=== PATIENT | male | born 1960 | race Two or more races ===

== ENCOUNTER → 2021-06-09 | Day surgery (SDC) | payer OTHER ==
[~2021-06-09] MED LIST: AVAPRO75 MG PO; BAYER CHILDREN'81 MG PO; CRESTOR20 MG PO; DUI500 PO; ULTRACET PO
== END | disposition home or self-care (01) ==
LOC: ADM 06-04 09:15 → CIR.AMB 05:40
PROVIDERS: ATTEND Orthopaedic Surgery Sports Medicine
DX: S83.231A Complex tear of medial meniscus, current injury, right knee, initial encounter (principal); M23.321 Other meniscus derangements, posterior horn of medial meniscus, right knee; M65.861 Other synovitis and tenosynovitis, right lower leg; Z20.822 Contact with and (suspected) exposure to COVID-19